=== PATIENT | female | born 1940 | race Caucasian/White ===

== ENCOUNTER → 2016-06-28 | Outpatient (CLI) | payer OTHER | LOC: FIMAGING 10:22 | DX: Z12.31 Encounter for screening mammogram for malignant neoplasm of breast (principal) | CPT/HCPCS: G0202 ==

== ENCOUNTER → 2016-11-09 | Outpatient (CLI) | payer OTHER | LOC: BMCIMAGING 13:21 | PROVIDERS: ATTEND Nurse Practitioner Adult Health | DX: J98.4 Other disorders of lung (principal); K44.9 Diaphragmatic hernia without obstruction or gangrene ==

== ENCOUNTER → 2016-11-11 | Outpatient (CLI) | payer OTHER ==
[~2016-11-11] MED LIST: IOPAMIDOL (ISOVUE 370) 100 ML BTL IV ONE; IOPAMIDOL (ISOVUE-300) 100 ML BTL ONE
== END ==
LOC: FIMAGING 16:45
PROVIDERS: ATTEND Internal Medicine
CPT/HCPCS: 71260; Q9967